=== PATIENT | female | born 1985 | race Caucasian/White ===

== ENCOUNTER 2017-11-28 11:17 | Emergency (ER) | payer SELFPAY ==
[2017-11-28 11:22] VITALS: BP 141/85; PULSE 96; RESP 20; TEMP 98.2
[2017-11-28 12:13] LABS: BILIRUBIN, URINE NEG (NEG); BLOOD, URINE NEG (NEG); GLUCOSE,URINE NEG (NEG); KETONE, URINE 15 mg/dL (NEG); NITRITE,URINE NEG (NEG); URINE LEUKOCYTE ESTERASE NEG (NEG)
[2017-11-28 12:14] LABS: URINE COLOR YELLOW (YELLW/STRAW)
[2017-11-28 12:17] LABS: SQUAMOUS EPITHELIAL CELL URINE 0-5 /hpf (0-5); WBC, URINE 0-2 /hpf (0-5)
--- NOTE | 2017-11-28 12:24 | PD ---
HPI Chief Complaint: Abdominal Pain Time Seen by Provider: 12:15 Travel History International Travel<30 days: No Contact w/Intl Traveler<30days: No Traveled to known affect area: No History of Present Illness HPI This 32-year-old female is complaining of some right-sided abdominal/chest pain. His discomfort has been going on for about a week. She had had a cold and was coughing a lot. This is cleared up. She is now having this pain which is located in the right lateral chest. It does seem worse with certain movements and coughing. She is not sure if it's related to eating. She has a history of a spinal fusion. She saw her chiropractor yesterday who suggested she may be having gallbladder disease. There has not been fever or chills. She has not noted an infected eating and the pain PFSH Past Medical History Hx Anticoagulant Therapy: Yes (ASA ) Social History Tobacco Use: No Allergies-Medications (Allergen,Severity, Reaction): Coded Allergies: Sulfa (Sulfonamide Antibiotics) (Verified Allergy, Unknown, 11/28/17) amoxicillin (Verified Allergy, Unknown, 11/28/17) cefaclor (Verified Allergy, Unknown, 11/28/17) clavulanic acid (Verified Allergy, Unknown, 11/28/17) Reported Meds & Prescriptions Reported Meds & Active Scripts Active Reported [] 1 Tab PO DAILY Leuprolide Acetate 1 Mg/0.2 Ml Kit 1 Mg SQ DAILY Estradiol 2 Mg Tab 2 Mg PO BID Aspirin Low Dose (Aspirin) 81 Mg Chew 81 Mg PO DAILY Review of Systems General / Constitutional: No: Fever, Chills Eyes: No: Diploplia, Blurred Vision HENT: No: Headaches Cardiovascular: Positive: Chest Pain or Discomfort Respiratory: Positive: Cough, No: Shortness of Breath, Wheezing Gastrointestinal: No: Vomiting, Diarrhea Genitourinary: No: Frequency Skin: No Rash, No Itching Neurologic: No: Weakness, Dizziness Hematologic/Lymphatic: No: Easy Bruising Physical Exam Narrative GENERAL: Well-developed female SKIN: Focused skin assessment warm/dry. HEAD: Atraumatic. Normocephalic. EYES: Pupils equal and round. No scleral icterus. No injection or drainage. ENT: No nasal bleeding or discharge. Mucous membranes pink and moist. NECK: Trachea midline. No JVD. CARDIOVASCULAR: Regular rate and rhythm. No murmur appreciated. RESPIRATORY: No accessory muscle use. Clear to auscultation. Breath sounds equal bilaterally. GASTROINTESTINAL: Abdomen soft, non-tender, nondistended. Hepatic and splenic margins not palpable. MUSCULOSKELETAL: No obvious deformities. No clubbing. No cyanosis. No edema. NEUROLOGICAL: Awake and alert. No obvious cranial nerve deficits. Motor grossly within normal limits. Normal speech. PSYCHIATRIC: Appropriate mood and affect; insight and judgment normal. Data Data Last Documented VS Vital Signs Date Time Temp Pulse Resp B/P (MAP) Pulse Ox O2 Delivery O2 Flow Rate FiO2 11/28/17 14:59 83 17 127/81 (96) 96 Room Air 11/28/17 11:22 98.2 Orders Orders Urinalysis - C+S If Indicated (11/28/17 11:42) Ed Urine Pregnancytest Poc (11/28/17 11:42) Complete Blood Count With Diff (11/28/17 12:21) Comprehensive Metabolic Panel (11/28/17 12:21) Lipase (11/28/17 12:21) Chest, Single Ap (11/28/17 12:21) Us Abdomen Gallbladder (11/28/17 13:25) Ed Discharge Order (11/28/17 15:33) Labs Laboratory Tests Test 11/28/17 12:05 11/28/17 13:25 Urine Collection Type CLEAN CATCH Urine Color YELLOW Urine Turbidity CLEAR Urine pH 6.0 Urine Specific Lawson 1.004 Urine Protein NEG mg/dL Urine Glucose (UA) NEG mg/dL Urine Ketones 15 mg/dL Urine Occult Blood NEG Urine Nitrite NEG Urine Bilirubin NEG Urine Leukocyte Esterase NEG Urine WBC 0-2 /hpf Urine Squamous Epithelial Cells 0-5 /hpf Microscopic Urinalysis Comment CULT NOT INDICATED Urine Collection Time 12:05 White Blood Count 9.3 TH/MM3 Red Blood Count 5.23 MIL/MM3 Hemoglobin 13.7 GM/DL Hematocrit 42.7 % Mean Corpuscular Volume 81.5 FL Mean Corpuscular Hemoglobin 26.1 PG Mean Corpuscular Hemoglobin Concent 32.1 % Red Cell Distribution Width 13.0 % Platelet Count 283 TH/MM3 Mean Platelet Volume 8.1 FL Neutrophils (%) (Auto) 74.3 % Lymphocytes (%) (Auto) 17.3 % Monocytes (%) (Auto) 6.5 % Eosinophils (%) (Auto) 1.4 % Basophils (%) (Auto) 0.5 % Neutrophils # (Auto) 7.0 TH/MM3 Lymphocytes # (Auto) 1.6 TH/MM3 Monocytes # (Auto) 0.6 TH/MM3 Eosinophils # (Auto) 0.1 TH/MM3 Basophils # (Auto) 0.0 TH/MM3 CBC Comment DIFF FINAL Differential Comment Blood Urea Nitrogen 8 MG/DL Creatinine 0.75 MG/DL Random Glucose 74 MG/DL Total Protein 8.4 GM/DL Albumin 3.8 GM/DL Calcium Level 9.1 MG/DL Alkaline Phosphatase 90 U/L Aspartate Amino Transf (AST/SGOT) 17 U/L Alanine Aminotransferase (ALT/SGPT) 17 U/L Total Bilirubin 0.7 MG/DL Sodium Level 136 MEQ/L Potassium Level 3.8 MEQ/L Chloride Level 101 MEQ/L Carbon Dioxide Level 25.8 MEQ/L Anion Gap 9 MEQ/L Estimat Glomerular Filtration Rate 90 ML/MIN Lipase 132 U/L MDM Medical Decision Making Medical Screen Exam Complete: Yes Emergency Medical Condition: Yes Medical Record Reviewed: Yes Differential Diagnosis Differential includes cholelithiasis, cholecystitis, pleurisy, rib fracture Narrative Course Chest x-ray is negative. Ultrasound shows a solitary stone adherent to the gallbladder wall polyp there is no wall thickening. I believe her pain is related to pleurisy from her previous infection. She is stable for discharge Diagnosis Primary Impression: Pleurisy Additional Instructions: Take ibuprofen or Aleve for pain Disposition: 01 DISCHARGE HOME Condition: Stable Olegario Mathias MD Nov 28, 2017 12:24
[2017-11-28] MEDS ORDERED: ASPI81CH6 PO (12:58)
[2017-11-28] MEDS ORDERED: prenatal PO (12:58)
[2017-11-28] MEDS ORDERED: LEUP1INJ4 SQ (12:58)
[2017-11-28] MEDS ORDERED: ESTR2TAB PO (12:58)
[2017-11-28 13:28] LABS: BASOPHIL % 0.5 % (0.0-2.0); EOSINOPHIL # 0.1 TH/MM3 (0-0.4); EOSINOPHIL % 1.4 % (0.0-4.0); HEMATOCRIT 42.7 % (35.0-46.0); HEMOGLOBIN 13.7 GM/DL (11.6-15.3); LYMPH % 17.3 % (9.0-44.0); LYMPHOCYTE # 1.6 TH/MM3 (1.0-4.8); MEAN CELL VOLUME 81.5 FL (80.0-100.0); MEAN CORPUSCULAR HEMOGLOBIN 26.1 PG (27.0-34.0); MEAN CORPUSCULAR HGB CONC 32.1 % (32.0-36.0); MEAN PLATELET VOLUME 8.1 FL (7.0-11.0); MONO % 6.5 % (0.0-8.0); MONOCYTE # 0.6 TH/MM3 (0-0.9); NEUT % 74.3 % (16.0-70.0); PLATELET COUNT 283 TH/MM3 (150-450); RED BLOOD COUNT 5.23 MIL/MM3 (4.00-5.30); WHITE BLOOD COUNT 9.3 TH/MM3 (4.0-11.0)
[2017-11-28 13:43] LABS: CHLORIDE 101 MEQ/L (98-107); SODIUM (NA) 136 MEQ/L (136-145)
[2017-11-28 13:46] LABS: CALCIUM 9.1 MG/DL (8.5-10.1)
[2017-11-28 13:47] LABS: ALBUMIN 3.8 GM/DL (3.4-5.0); BICARBONATE 25.8 MEQ/L (21.0-32.0); BLOOD UREA NITROGEN 8 MG/DL (7-18); GLUCOSE,RANDOM 74 MG/DL (74-106); LIPASE 132 U/L (73-393)
[2017-11-28 13:50] LABS: ALT (GPT) 17 U/L (10-53); AST (GOT) 17 U/L (15-37); CREATININE 0.75 MG/DL (0.50-1.00); GLOMERULAR FILTRATION RATE 90 ML/MIN (>89)
[2017-11-28 13:51] LABS: TOTAL BILIRUBIN ADULT 0.7 MG/DL (0.2-1.0)
[2017-11-28 13:52] LABS: TOTAL PROTEIN 8.4 GM/DL (6.4-8.2)
[2017-11-28 13:53] LABS: ALKALINE PHOSPHATASE 90 U/L (45-117)
--- NOTE | 2017-11-28 14:36 | RADRPT ---
EXAM DATE/TIME: 11/28/2017 13:09 [facility] COMPARISON: No previous studies available for comparison. INDICATIONS : Chest pain MEDICAL HISTORY : None. SURGICAL HISTORY : None. ENCOUNTER: Initial ACUITY: 1 day PAIN SCORE: 2/10 LOCATION: Bilateral chest FINDINGS: A single view of the chest demonstrates the lungs to be symmetrically aerated without evidence of mas s, infiltrate or effusion. The cardiomediastinal contours are unremarkable. Osseous structures are intact. CONCLUSION: 1. No acute cardiopulmonary disease. Sarkis Sorto MD on November 28, 2017 at 14:33 Board Certified Radiologist. This report was verified electronically.
[2017-11-28 14:59] VITALS: BP 127/81; PULSE 83; RESP 17; O2SAT 96
--- NOTE | 2017-11-28 15:14 | RADRPT ---
EXAM DATE/TIME: 11/28/2017 13:37 [facility] COMPARISON: No previous studies available for comparison. INDICATIONS : Right upper quadrant pain. MEDICAL HISTORY : Endometriosis. SURGICAL HISTORY : section. Spinal fusion. Laproscopy for endometrosis. ENCOUNTER: Initial ACUITY: 1 week PAIN SCORE: 4/10 LOCATION: Right upper quadrant MEASUREMENTS: LIVER: 13.5 cm length COMMON DUCT: 3 mm RIGHT KIDNEY: 8.6 x 4.7 x 5.7 cm FINDINGS: LIVER: Normal echotexture without focal lesion or ductal dilatation. COMMON DUCT: No intraluminal mass or stone visualized. GALLBLADDER: Small 4 mm non-mobile echogenic focus in the gallbladder wall. No significant gallbladder wall thicke madina, pericholecystic fluid or sonographic Doe sign. PANCREAS: The visualized portions are within normal limits. RIGHT KIDNEY: No evidence of hydronephrosis, stone, or mass. CONCLUSION: 1. 4 mm nonmobile echogenic focus abutting the gallbladder wall. Differential considerations include adherent stone versus small gallbladder polyp. 2. Otherwise, unremarkable right upper quadrant ultrasound exam. Sarkis Sorto MD on November 28, 2017 at 15:09 Board Certified Radiologist. This report was verified electronically.
== END 2017-11-28 17:01 | disposition home or self-care (01) ==
LOC: PHED 11:17
DX: R09.1 Pleurisy (principal)
CPT/HCPCS: 71045; 76705; 80053; 81001; 83690; 84703; 85025; 99285